=== PATIENT | female | born 1950 | race Caucasian/White ===

== ENCOUNTER → 2019-02-21 | Outpatient (CLI) | payer MEDICARE ==
--- NOTE | 2019-02-21 10:58 | RAD ---
EXAM: Left knee, 4 views. HISTORY: Pain. COMPARISON: None. FINDINGS: 4 views of the left knee are obtained. There is medial compartment joint space narrowing with subchondral sclerosis and marginal spurring. There is mild patellar spurring. There is no fracture, dislocation or subluxation. There is no joint effusion. IMPRESSION: Moderate medial and mild patellofemoral compartment osteoarthritis of the left knee. Electronically signed by: Dotty Correa MD (02/21/2019 10:55 AM) [facility]
== END | disposition home or self-care (01) ==
LOC: PMG 10:15
PROVIDERS: ATTEND Family Medicine
DX: M17.12 Unilateral primary osteoarthritis, left knee (principal); M76.9 Unspecified enthesopathy, lower limb, excluding foot
CPT/HCPCS: 73562

== ENCOUNTER 2019-05-10 11:17 | Emergency (ER) | payer MEDICARE ==
[~2019-05-10] VITALS: Ht 167.6 cm; Wt 90.6 kg
[2019-05-10 11:43] VITALS: BP 131/74
--- NOTE | 2019-05-10 11:52 | RAD ---
Right wrist 3 views. HISTORY: Pain after a fall 3 views were taken of the right wrist. There is an angulated fracture of the distal radius. There is impaction of the dorsal cortex. There is slightly more than cortex width of dorsal displacement. There is fracture the ulnar styloid. IMPRESSION: 1. Angulated mildly displaced fracture distal radius. 2. Fracture ulnar styloid. Electronically signed by: Neto Pierce MD (05/10/2019 11:48 AM) [id number]
--- NOTE | 2019-05-10 12:20 | PHYS DOC ---
Past History Past Medical History: High Cholesterol, Hypothyroid Past Surgical History: Appendectomy, Cholecystectomy, Tonsillectomy Alcohol Use: Rarely Drug Use: None Adult General Chief Complaint Chief Complaint: WRIST PAIN HPI HPI 68-year-old female presents with right wrist pain. 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 She stuck out her right hand and landed against that wrist. She had immediate pain. She is concerned about fracture. The patient is on chronic pain medication already for her shoulder that she needs rotator cuff surgery on. The shoulder did not sustain any additional injury. She already has an orthopedic surgeon. She denies any other injuries. Review of Systems Review of Systems Constitutional: Denies fever or chills [] Eyes: Denies change in visual acuity, redness, or eye pain [] HENT: Denies nasal congestion or sore throat [] Respiratory: Denies cough or shortness of breath [] Cardiovascular: No additional information not addressed in HPI [] GI: Denies abdominal pain, nausea, vomiting, bloody stools or diarrhea [] : Denies dysuria or hematuria [] Musculoskeletal: Right wrist pain[] Integument: Denies rash or skin lesions [] Neurologic: Denies headache, focal weakness or sensory changes [] Endocrine: Denies polyuria or polydipsia [] All other systems were reviewed and found to be within normal limits, except as documented in this note. Allergies Allergies Allergies Coded Allergies Type Severity Reaction Last Updated Verified Penicillins Allergy Unknown 05/10/19 Yes cephalexin Allergy Unknown 05/10/19 Yes Physical Exam Physical Exam Constitutional: Well developed, well nourished, no acute distress, non-toxic appearance. [] HENT: Normocephalic, atraumatic, bilateral external ears normal, oropharynx moist, no oral exudates, nose normal. [] Eyes: PERRLA, EOMI, conjunctiva normal, no discharge. [] Neck: Normal range of motion, no tenderness, supple, no stridor. [] Cardiovascular:Heart rate regular rhythm, no murmur [] Lungs & Thorax: Bilateral breath sounds clear to auscultation [] Abdomen: Bowel sounds normal, soft, no tenderness, no masses, no pulsatile masses. [] Skin: Warm, dry, no erythema, no rash. [] Back: No tenderness, no CVA tenderness. [] Extremities: Tenderness over the right wrist, swelling.[] Neurologic: Alert and oriented X 3, normal motor function, normal sensory function, no focal deficits noted. [] Psychologic: Affect normal, judgement normal, mood normal. [] Current Patient Data Vital Signs Vital Signs Date Time Temp Pulse Resp B/P (MAP) Pulse Ox O2 Delivery O2 Flow Rate FiO2 05/10/19 11:43 97.9 76 18 97 Room Air 05/10/19 11:31 131/74 (93) EKG EKG [] Radiology/Procedures Radiology/Procedures [] Impressions: Right wrist 3 views. HISTORY: Pain after a fall 3 views were taken of the right wrist. There is an angulated fracture of the distal radius. There is impaction of the dorsal cortex. There is slightly more than cortex width of dorsal displacement. There is fracture the ulnar styloid. IMPRESSION: 1. Angulated mildly displaced fracture distal radius. 2. Fracture ulnar styloid. Electronically signed by: Efraín Pierce MD (05/10/2019 11:48 AM) [id number] DICTATED AND SIGNED BY: EFRAÍN PIERCE MD DATE: 05/10/19 1148 CC: GARY PAUL DO; JARRED DUMONT MD ~ Course & Med Decision Making Course & Med Decision Making Pertinent Labs and Imaging studies reviewed. (See chart for details) The patient's x-rays significant for a radius and ulna fracture. We will place her in a splint. She is already from a with Dr. Muhammad, orthopedic surgeon. She will call his office for follow-up. We'll give her one [place] 10/325 in the ED as well as [place] 7.5 for home. [] Dragon Disclaimer Dragon Disclaimer This electronic medical record was generated, in whole or in part, using a voice recognition dictation system. Departure Departure: Impression: Primary Impression: Wrist fracture, right Disposition: 01 HOME, SELF-CARE Condition: STABLE Referrals: JARRED DUMONT MD (PCP) Patient Instructions: Wrist Fracture, [id number] Scripts Hydrocodone Bit/Acetaminophen (NORCO 7.5-325 TABLET) 1 Each Tablet 1 TAB PO PRN Q6HRS PRN for PAIN, #10 TAB 0 Refills Prov: GARY PAUL DO 05/10/19 Problem Qualifiers Primary Impression: Wrist fracture, right Encounter type: initial encounter Fracture type: closed Qualified Codes: S62.101A - Fracture of unspecified carpal bone, right wrist, initial encounter for closed fracture GARY PAUL DO May 10, 2019 12:20
[2019-05-10] MEDS ORDERED: HYDR-3166 PO (12:28)
[2019-05-10] MEDS ORDERED: HYDROcodone/APAP 10/325 1 TAB TABLET PO ONE (12:45)
== END 2019-05-10 12:37 | disposition home or self-care (01) ==
LOC: ER 11:17
DX: S52.501A Unspecified fracture of the lower end of right radius, initial encounter for closed fracture (principal); S52.611A Displaced fracture of right ulna styloid process, initial encounter for closed fracture; E78.00 Pure hypercholesterolemia, unspecified; E03.9 Hypothyroidism, unspecified; Z88.0 Allergy status to penicillin; Z88.1 Allergy status to other antibiotic agents; W01.198A Fall on same level from slipping, tripping and stumbling with subsequent striking against other object, initial encounter; Y93.89 Activity, other specified; Y92.512 Supermarket, store or market as the place of occurrence of the external cause; Y99.8 Other external cause status
CPT/HCPCS: 73110; 99284

== ENCOUNTER → 2019-06-01 | Outpatient (CLI) | payer MEDICARE ==
[2019-05-10 11:43] VITALS: BP 131/74
[~2019-06-01] MED LIST: HYDR-3166 PO
--- NOTE | 2019-06-07 13:06 | RAD ---
DATE: 06/01/2019 EXAM: MAMMO UTE SCREENING BILATERAL HISTORY: Routine screening COMPARISON: 05/24/2015, 05/17/2016, 05/26/2017 mammographic exams performed at outside institutions This study was interpreted with the benefit of Computerized Aided Detection (CAD). Breast Density: SCATTERED The breast parenchyma shows scattered fibroglandular densities. Breast parenchyma level B. FINDINGS: No suspicious calcification, masses, or distortion. IMPRESSION: Stable BI-RADS CATEGORY: 1 NEGATIVE RECOMMENDED FOLLOW-UP: 12M 12 MONTH FOLLOW-UP PQRS compliance statement: Patient information was entered into a reminder system with a target due date for the next mammogram. Mammography is a sensitive method for finding small breast cancers, but it does not detect them all and is not a substitute for careful clinical examination. A negative mammogram does not negate a clinically suspicious finding and should not result in delay in biopsying a clinically suspicious abnormality. "Our facility is accredited by the [employer] Mammography Program."
== END | disposition home or self-care (01) ==
LOC: MAMMO 11:10
PROVIDERS: ATTEND Family Medicine
DX: Z12.31 Encounter for screening mammogram for malignant neoplasm of breast (principal)
CPT/HCPCS: 77063; 77067

== ENCOUNTER → 2019-11-08 | Outpatient (CLI) | payer MEDICARE, OTHER ==
--- NOTE | 2019-11-08 12:12 | CARD ---
MR#: [id number] Date of Study: 11/08/2019 Ordering Physician: CACHORRO BARRAZA, Referring Physician: CACHORRO BARRAZA, Tech: Joselyn Rivera APPROVED REPORT EXAM: Two-dimensional and M-mode echocardiogram with Doppler and color Doppler. Other Information Quality : AverageHR: 57bpm INDICATION Cardiac Disease: CAD Athlerosclerotic heart disease RISK FACTORS Hyperlipidemia 2D DIMENSIONS Left Atrium(2D)3.9 (1.6-4.0cm)IVSd1.2 (0.7-1.1cm) Aortic Root(2D)3.2 (2.0-3.7cm)LVDd4.5 (3.9-5.9cm) LVOT Diameter2.0 (1.8-2.4cm)PWd1.1 (0.7-1.1cm) LVDs2.7 (2.5-4.0cm)FS (%) 40.0 % SV65.9 mlLVEF(%)70.8 (>50%) Aortic Valve AoV Peak Burt.182.1cm/sAoV VTI43.1cm AO Peak GR.13.3mmHgLVOT Peak Burt.148.2cm/s LVOT VTI 31.47cmAO Mean GR.8mmHg JOSEPH (VMAX)2.75lb5AUH (VTI)2.30cm2 Mitral Valve MV E Amlcxzzc27.8cm/sMV DECEL URRM406eg MV A Nflfdqts52.4cm/sE/A Ratio1.2 Pulmonary Valve PV Peak Iswoftxk440.4cm/sPV Peak Grad.4mmHg Tricuspid Valve TR P. Postejuu632mo/sRAP SYSNICHV0kbYv TR Peak Gr.38ncUsOYPQ05onAz Pulmonary Vein S1 Caphqxbn12.2cm/sD2 Zihvuyqh77.4cm/s LEFT VENTRICLE The left ventricle is normal size. There is borderline to mild concentric left ventricular hypertroph y. The left ventricular systolic function is normal. The Ejection Fraction is 55-60%. There is normal LV segmental wall motion. Transmitral Doppler flow pattern is Grade II-pseudonormal filling dynamics . RIGHT VENTRICLE The right ventricle is normal size. There is normal right ventricular wall thickness. The right ventr icular systolic function is normal. ATRIA The left atrium size is normal. The right atrium size is normal. The interatrial septum is intact wit h no evidence for an atrial septal defect or patent foramen ovale as noted on 2-D or Doppler imaging. AORTIC VALVE The aortic valve is normal in structure and function. Doppler and Color Flow revealed no significant aortic regurgitation. There is no significant aortic valvular stenosis. MITRAL VALVE The mitral valve is normal in structure and function. There is no evidence of mitral valve prolapse. There is no mitral valve stenosis. Doppler and Color-flow revealed trace mitral regurgitation. TRICUSPID VALVE The tricuspid valve is normal in structure and function. Doppler and Color Flow revealed trace to mil d tricuspid regurgitation with an estimated PAP of 37 mmHg. There is no tricuspid valve prolapse or v egetation. There is no tricuspid valve stenosis. PULMONIC VALVE The pulmonic valve is not well visualized. Doppler and Color Flow revealed no pulmonic valvular regur gitation. GREAT VESSELS The aortic root is normal in size. The ascending aorta is normal in size. The IVC is dilated and aakash apses >50%. PERICARDIAL EFFUSION There is no evidence of significant pericardial effusion. Critical Notification Critical Value: No <Conclusion> The left ventricular systolic function is normal. The Ejection Fraction is 55-60%. There is normal LV segmental wall motion. Trace mitral regurgitation. Trace to mild tricuspid regurgitation with an estimated PAP of 37 mmHg. There is no evidence of significant pericardial effusion. Signed by : Kirill Hodge, Electronically Approved : 11/08/2019 12:11:48
== END | disposition home or self-care (01) ==
LOC: ECHO 10:59
PROVIDERS: ATTEND Internal Medicine Cardiovascular Disease
DX: I36.1 Nonrheumatic tricuspid (valve) insufficiency (principal); I25.10 Atherosclerotic heart disease of native coronary artery without angina pectoris
CPT/HCPCS: 93306

== ENCOUNTER → 2020-06-10 | Outpatient (CLI) | payer MEDICARE ==
--- NOTE | 2020-06-12 10:51 | RAD ---
Examination: MG BILAT SCREEN+UTE History: Reason: SCREENING MAMMOGRAM 3D / Spl. Instructions: / History: Comparison/Correlation: 05/24/2015, 05/17/2016, 05/26/2017, 06/01/2019 Technique: MLO and CC digital tomosynthesis (3D) images obtained. Radiologist reviewed these images on dedicated workstation. Findings: Breast Tissue Density C : The breasts are heterogeneously dense, which may obscure small masses. There are no dominant masses, suspicious microcalcifications, or architectural distortion. IMPRESSION: No mammographic evidence of malignancy. Recommend routine screening. BI-RADS category 1: Negative. The images were reviewed with computer-aided detection. Patient information is entered into reminder system with a target due date for the next screening [facility]. Mammography is the most sensitive method for finding small breast cancers, but it does not detect the m all and is not a substitute for careful clinical examination. A negative mammogram does not negate a clinically suspicious finding and should not result in delay in biopsying a clinically suspicious a bnormality. "Our facility is accredited by the [employer] Mammography Program." Electronically signed by: Steve Carmen MD (06/12/2020 10:48 AM) [id number]
== END ==
LOC: MAMMO 11:03
PROVIDERS: ATTEND Family Medicine
DX: Z12.31 Encounter for screening mammogram for malignant neoplasm of breast (principal)
CPT/HCPCS: 77063; 77067

== ENCOUNTER → 2021-02-20 | Outpatient (CLI) | payer MEDICARE ==
--- NOTE | 2021-02-20 11:01 | RAD ---
EXAM: Right lower extremity venous Doppler sonogram. HISTORY: Pain and swelling. TECHNIQUE: Carpenter scale and color Doppler sonographic evaluation of the right lower extremity veins wit h spectral waveform analysis was performed. FINDINGS: There is normal color flow, normal compressibility and there are normal spectral waveforms in the common femoral, superficial femoral, popliteal, posterior tibial and greater saphenous veins. IMPRESSION: No Doppler evidence of lower extremity deep venous thrombosis. Electronically signed by: Dotty Correa MD (02/20/2021 10:59 AM) [id number]
== END ==
LOC: US 10:25
PROVIDERS: ATTEND Family Medicine
DX: R22.41 Localized swelling, mass and lump, right lower limb (principal); R29.898 Other symptoms and signs involving the musculoskeletal system
CPT/HCPCS: 93971

== ENCOUNTER → 2021-04-15 | Outpatient (CLI) | payer MEDICARE ==
--- NOTE | 2021-04-16 14:37 | CARD ---
MR#: [id number] Date of Study: 04/15/2021 Ordering Physician: CACHORRO BARRAZA, Referring Physician: CACHORRO BARRAZA, Tech: Joselyn Rivera, [facility] APPROVED REPORT EXAM: Two-dimensional and M-mode echocardiogram with Doppler and color Doppler. Other Information Quality : AverageHR: 50bpm INDICATION COPD Atherosclerotic Heart Disease 2D DIMENSIONS Left Atrium(2D)3.8 (1.6-4.0cm)IVSd1.1 (0.7-1.1cm) Aortic Root(2D)3.1 (2.0-3.7cm)LVDd5.4 (3.9-5.9cm) LVOT Diameter2.0 (1.8-2.4cm)PWd1.2 (0.7-1.1cm) LVDs3.2 (2.5-4.0cm)FS (%) 40.9 % SV100.9 ml Aortic Valve AoV Peak Burt.181.0cm/sAoV VTI44.2cm AO Peak GR.13.1mmHgLVOT Peak Burt.135.2cm/s LVOT VTI 29.98cmAO Mean GR.7mmHg JOSEPH (VMAX)2.16sy4UXU (VTI)2.23cm2 Mitral Valve MV E Duwlhenv938.4cm/sMV E Peak Gr.4mmHg MV DECEL UVFN151ltCX A Jukxgjvv65.5cm/s MV E Mean Gr.1mmHgE/A Ratio1.9 Pulmonary Valve PV Peak Xwdesrid27.7cm/sPV Peak Grad.4mmHg Tricuspid Valve TR P. Yxhkubqs466yw/sRAP GVFDZSST1onHi TR Peak Gr.76nwZhLQJG86rzOt LEFT VENTRICLE The left ventricle is normal size. There is mild concentric left ventricular hypertrophy. The left ve ntricular systolic function is normal and the ejection fraction is within normal range. The Ejection Fraction is 50-55%. There is normal LV segmental wall motion. Tissue Doppler imaging reveals moderate left ventricular diastolic dysfunction. RIGHT VENTRICLE The right ventricle is normal size. There is normal right ventricular wall thickness. The right ventr icular systolic function is normal. ATRIA The left atrium size is normal. The right atrium size is normal. The interatrial septum is intact wit h no evidence for an atrial septal defect or patent foramen ovale as noted on 2-D or Doppler imaging. AORTIC VALVE The aortic valve is normal in structure and function. Doppler and Color Flow revealed no significant aortic regurgitation. There is no significant aortic valvular stenosis. Calculated aortic valve area is 2.5 cm2 with maximum pressure gradient of 13 mmHg and mean pressure gradient of 7 mmHg. MITRAL VALVE The mitral valve is normal in structure and function. There is no evidence of mitral valve prolapse. There is no mitral valve stenosis. Doppler and Color-flow revealed trace mitral regurgitation. TRICUSPID VALVE The tricuspid valve is normal in structure and function. Doppler and Color Flow revealed trace tricus pid regurgitation with an estimated PAP of 27 mmHg. There is no tricuspid valve stenosis. PULMONIC VALVE The pulmonic valve is not well visualized. Doppler and Color Flow revealed trace pulmonic valvular re gurgitation. GREAT VESSELS The aortic root is normal in size. The IVC is normal in size and collapses >50% with inspiration. PERICARDIAL EFFUSION There is no evidence of significant pericardial effusion. Critical Notification Critical Value: No <Conclusion> The left ventricle is normal size. The left ventricular systolic function is normal and the ejection fraction is within normal range. The Ejection Fraction is 50-55%. There is mild concentric left ventricular hypertrophy. Doppler and Color Flow revealed no significant aortic regurgitation. There is no significant aortic valvular stenosis. Doppler and Color-flow revealed trace mitral regurgitation. Doppler and Color Flow revealed trace tricuspid regurgitation with an estimated PAP of 27 mmHg. Signed by : Bill Juarez MD Electronically Approved : 04/16/2021 14:37:16
== END ==
LOC: US 15:03
PROVIDERS: ATTEND Internal Medicine Cardiovascular Disease
DX: I51.7 Cardiomegaly (principal); I25.10 Atherosclerotic heart disease of native coronary artery without angina pectoris
CPT/HCPCS: 93306